=== PATIENT | male | born 1960 | race Caucasian/White ===

== ENCOUNTER 2017-03-05 14:10 | Emergency (ER) | payer SELFPAY ==
[~2017-03-05] VITALS: Ht 177.8 cm; Wt 105.0 kg
[2017-03-05 14:13] VITALS: BP 147/94; PULSE 80; RESP 20; TEMP 98.7; O2SAT 96
--- NOTE | 2017-03-05 14:17 | PD ---
Physical Exam Date Seen by Provider: Mar 05, 2017 Time Seen by Provider: 14:16 Narrative 56 yo male here for hematuria. Also feels weak. Going on since friday. Was doing a lot of working outside and feels he might have over done it. Blood only on friday. No chest pain or SOB. Vitals are stable. Awaiting bed placement. Data Data Last Documented VS Vital Signs Date Time Temp Pulse Resp B/P (MAP) Pulse Ox O2 Delivery O2 Flow Rate FiO2 03/05/17 14:13 98.7 80 20 147/94 (111) 96 Room Air [facility] Medical Record Reviewed: Yes Supervised Visit with JHONATAN: No Agustin Scott Mar 05, 2017 14:17
[2017-03-05 15:16] LABS: AUTOMATED NEUTROPHIL # 3.7 TH/MM3 (1.8-7.7); BASOPHIL # 0.1 TH/MM3 (0-0.2); BASOPHIL % 0.9 % (0.0-2.0); EOSINOPHIL # 0.3 TH/MM3 (0-0.4); EOSINOPHIL % 4.5 % (0.0-4.0); HEMATOCRIT 37.1 % (39.0-51.0); HEMO FLAGS DIFF FINAL; LYMPHOCYTE # 2.5 TH/MM3 (1.0-4.8); MEAN CELL VOLUME 78.8 FL (80.0-100.0); MEAN CORPUSCULAR HEMOGLOBIN 25.2 PG (27.0-34.0); MONO % 12.3 % (0.0-8.0); NEUT % 49.3 % (16.0-70.0); PLATELET COUNT 302 TH/MM3 (150-450); RED BLOOD COUNT 4.71 MIL/MM3 (4.50-5.90); RED CELL DISTRIBUTION WIDTH 17.5 % (11.6-17.2); WHITE BLOOD COUNT 7.5 TH/MM3 (4.0-11.0)
[2017-03-05 15:34] LABS: BICARBONATE 28.8 MEQ/L (21.0-32.0); MAGNESIUM 2.2 MG/DL (1.5-2.5); POTASSIUM 3.3 MEQ/L (3.5-5.1)
[2017-03-05 15:38] LABS: BACTERIA, URINE RARE /hpf; BLOOD, URINE LARGE (NEG); COMMENT (UR) CULT NOT INDICATED; CULTURE IF INDICATED CULT NOT INDICATED; GLUCOSE,URINE NEG (NEG); KETONE, URINE NEG (NEG); NITRITE,URINE NEG (NEG); PH, URINE 5.5 (5.0-8.5); SQUAMOUS EPITHELIAL CELL URINE 1 /hpf (0-5); URINE COLOR YELLOW (YELLW/STRAW)
--- NOTE | 2017-03-05 16:17 | PD ---
HPI Chief Complaint: Complaint Time Seen by Provider: 16:16 Travel History International Travel<30 days: No Contact w/Intl Traveler<30days: No Traveled to known affect area: No History of Present Illness HPI 56 YO M presents to the ED for evaluation of intermittent hematuria x 4 days. The patient states that he helped his daughter ready her home for sale over the weekend and was outside in the heat, physically exerting himself. He states that he noticed small amount of blood in his urine 3 days ago, increased his hydration and noted that it resolves. He states that after helping his daughter he noticed that the hematuria was back. He does endorse mild left- sided back pain, which she attributes to his physical exertion. He denies fever , chills, nausea, vomiting, abdominal pain, dysuria. No treatment attempt at home. PFSH Past Medical History Cardiovascular Problems: Yes (HTN) Social History Tobacco Use: No Allergies-Medications (Allergen,Severity, Reaction): Coded Allergies: Penicillins (Verified Allergy, Severe, 03/05/17) Reported Meds & Prescriptions Reported Meds & Active Scripts Active Reported Lisinopril 10 Mg Tab 10 Mg PO DAILY Norvasc (Amlodipine Besylate) 2.5 Mg Tab 2.5 Mg PO DAILY Review of Systems Except as stated in HPI: all other systems reviewed are Neg Physical Exam Narrative GENERAL: Well-nourished, well-developed pleasant white male in no acute distress. SKIN: Focused skin assessment warm/dry. HEAD: Normocephalic. EYES: No scleral icterus. No injection or drainage. NECK: Supple, trachea midline. No JVD or lymphadenopathy. CARDIOVASCULAR: Regular rate and rhythm without murmurs, gallops, or rubs. RESPIRATORY: Breath sounds clear and equal bilaterally. No accessory muscle use. GASTROINTESTINAL: Abdomen soft, non-tender, nondistended. Active bowel sounds. No flank tenderness. No palpable masses. No suprapubic tenderness. MUSCULOSKELETAL: No cyanosis, or edema. BACK: Nontender without obvious deformity. No CVA tenderness. Data Data Last Documented VS Vital Signs Date Time Temp Pulse Resp B/P (MAP) Pulse Ox O2 Delivery O2 Flow Rate FiO2 03/05/17 17:05 03/05/17 14:13 98.7 80 20 96 Room Air Orders Orders Complete Blood Count With Diff (03/05/17 14:17) Basic Metabolic Panel (Bmp) (03/05/17 14:17) Creatine Kinase (Cpk) (03/05/17 14:17) Urinalysis - C+S If Indicated (03/05/17 14:17) Magnesium (Mg) (03/05/17 14:17) Potassium Chloride (Kcl) (03/05/17 16:45) Mandatory Outpatient Referral (03/05/17 16:35) Labs Laboratory Tests Test 03/05/17 14:25 White Blood Count 7.5 TH/MM3 Red Blood Count 4.71 MIL/MM3 Hemoglobin 11.9 GM/DL Hematocrit 37.1 % Mean Corpuscular Volume 78.8 FL Mean Corpuscular Hemoglobin 25.2 PG Mean Corpuscular Hemoglobin Concent 32.0 % Red Cell Distribution Width 17.5 % Platelet Count 302 TH/MM3 Mean Platelet Volume 7.6 FL Neutrophils (%) (Auto) 49.3 % Lymphocytes (%) (Auto) 33.0 % Monocytes (%) (Auto) 12.3 % Eosinophils (%) (Auto) 4.5 % Basophils (%) (Auto) 0.9 % Neutrophils # (Auto) 3.7 TH/MM3 Lymphocytes # (Auto) 2.5 TH/MM3 Monocytes # (Auto) 0.9 TH/MM3 Eosinophils # (Auto) 0.3 TH/MM3 Basophils # (Auto) 0.1 TH/MM3 CBC Comment DIFF FINAL Differential Comment Urine Color YELLOW Urine Turbidity CLEAR Urine pH 5.5 Urine Specific [place] 1.020 Urine Protein 30 mg/dL Urine Glucose (UA) NEG mg/dL Urine Ketones NEG mg/dL Urine Occult Blood LARGE Urine Nitrite NEG Urine Bilirubin NEG Urine Urobilinogen LESS THAN 2.0 MG/DL Urine Leukocyte Esterase NEG Urine RBC /hpf Urine WBC LESS THAN 1 /hpf Urine Squamous Epithelial Cells 1 /hpf Urine Bacteria RARE /hpf Urine Yeast (Budding) MOD Microscopic Urinalysis Comment CULT NOT INDICATED Blood Urea Nitrogen 14 MG/DL Creatinine 1.16 MG/DL Random Glucose 97 MG/DL Calcium Level 8.8 MG/DL Magnesium Level 2.2 MG/DL Sodium Level 141 MEQ/L Potassium Level 3.3 MEQ/L Chloride Level 104 MEQ/L Carbon Dioxide Level 28.8 MEQ/L Anion Gap 8 MEQ/L Estimat Glomerular Filtration Rate 65 ML/MIN Total Creatine Kinase 101 U/L MDM Medical Decision Making Medical Screen Exam Complete: Yes Emergency Medical Condition: Yes Differential Diagnosis hematuria versus bladder tumor versus nephrolithiasis versus other Narrative Course 56 YO M presents to the ED for evaluation of intermittent hematuria x 4 days. He states that he noticed small amount of blood in his urine 3 days ago, increased his hydration and noted that it resolved. He states that after helping his daughter move this weekend he noticed that the hematuria was back. He does endorse mild left-sided back pain, which he attributes to his physical exertion. He denies fever, chills, nausea, vomiting, abdominal pain, dysuria. No treatment attempt at home. Vitals reviewed. Physical exam reveals a well- appearing white male in no acute distress. Abdominal exam is completely benign. No suprapubic tenderness. No flank tenderness. No CVA tenderness. No leukocytosis noted. Hemoglobin 11.9. Potassium noted at 3.3, replenished orally in the ED. There is occult blood and few RBCs and the urinalysis blood no indication for culture. Its possible that the patient passed a small stone. He does not have a history of kidney stones. He does not have any abdominal pain on presentation. I feel that he is safe for outpatient follow-up with the urologist to further evaluate the source of this hematuria. Mandatory outpatient consult placed with Dr. Dewitt. The patient is agreeable to this plan. He is stable and discharged home. Diagnosis Primary Impression: Hematuria Qualified Codes: R31.9 - Hematuria, unspecified Additional Impression: Hypokalemia Referrals: Tanner Dewitt MD Patient Instructions: General Instructions, Hematuria (ED) Additional Instructions: Rest, hydrate. Return to normal, gentle activity as tolerated. Orally rehydrate as discussed. A mandatory outpatient consult has been placed on your behalf. You can expect a phone call from either the hospital or the urology office in the upcoming days for an appointment at the office. Return to the ED for worsening symptoms or any urgent or emergent medical condition. Disposition: 01 DISCHARGE HOME Condition: Stable Anisa Vega Mar 05, 2017 16:17
[2017-03-05] MEDS ORDERED: NORV2.5T PO (16:31)
[2017-03-05] MEDS ORDERED: LISI10TA3 PO (16:31)
[2017-03-05] MEDS ORDERED: POTASSIUM CHLORIDE 20 MEQ CONTROLLED RELEASE TAB PO ONE (16:45)
== END 2017-03-05 17:06 | disposition home or self-care (01) ==
LOC: NEPA 14:10
DX: R31.9 Hematuria, unspecified (principal); E87.6 Hypokalemia
CPT/HCPCS: 80048; 81001; 82550; 83735; 85025; 99283

== ENCOUNTER 2017-09-01 19:17 | Emergency (ER) | payer SELFPAY ==
[~2017-09-01 19:17] MED LIST: LISI10TA3 PO; NORV2.5T PO
[2017-09-01 19:19] VITALS: BP 148/102; PULSE 94; RESP 16; TEMP 98.2; O2SAT 96
--- NOTE | 2017-09-01 19:32 | PD ---
HPI Chief Complaint: Injury Time Seen by Provider: 19:28 Travel History International Travel<30 days: No Contact w/Intl Traveler<30days: No Traveled to known affect area: No History of Present Illness HPI 56-year-old male presents for evaluation of right arm pain. 6 days ago he tripped and fell, striking his right arm against a wall. He now has pain and bruising to the right arm which is aching, constant, worse with movement. Symptoms have been persistent which prompted evaluation. He denies any other injuries and he has no other complaints at this time. [facility] Past Medical History Cardiovascular Problems: Yes (HTN) Hypertension: Yes Past Surgical History Abdominal Surgery: Yes (gastric bypass) Social History Alcohol Use: No Tobacco Use: No Allergies-Medications (Allergen,Severity, Reaction): Coded Allergies: Penicillins (Verified Allergy, Severe, 03/05/17) Reported Meds & Prescriptions Reported Meds & Active Scripts Active Diclofenac Sodium DR (Diclofenac Sodium) 75 Mg Tabdr 75 Mg PO BID 10 Days Reported Lisinopril 10 Mg Tab 10 Mg PO DAILY Norvasc (Amlodipine Besylate) 2.5 Mg Tab 2.5 Mg PO DAILY Review of Systems Musculoskeletal: Positive: Pain Skin: Positive Other (positive for bruising) Physical Exam Narrative GENERAL: Well-nourished male in no acute distress SKIN: Warm and dry. Ecchymosis noted to the right arm and elbow region. No open wounds. HEAD: Atraumatic. Normocephalic. EYES: Pupils equal and round. No scleral icterus. No injection or drainage. ENT: No nasal bleeding or discharge. Mucous membranes pink and moist. NECK: Trachea midline. No JVD. CARDIOVASCULAR: Regular rate and rhythm. No murmur appreciated. RESPIRATORY: No accessory muscle use. Clear to auscultation. Breath sounds equal bilaterally. MUSCULOSKELETAL: Skin as noted above. There is no joint effusion. The patient maintains full range of motion of the right upper extremity but there is pain with range of motion activities of the right elbow. 2+ radial pulse. The compartments of the right arm are soft. Capillary refill less than 2 seconds all digits right hand. NEUROLOGICAL: Awake and alert. No obvious cranial nerve deficits. Motor grossly within normal limits. Normal speech. Data Data Last Documented VS Vital Signs Date Time Temp Pulse Resp B/P (MAP) Pulse Ox O2 Delivery O2 Flow Rate FiO2 09/01/17 20:47 09/01/17 19:19 98.2 94 16 96 Orders Orders Humerus (Min 2vws) (09/01/17 ) Elbow, Complete (4 Vws) (09/01/17 ) Ice/Cold Pack (09/01/17 19:28) Support Splint (09/01/17 20:35) Ed Discharge Order (09/01/17 20:35) Sling Cradle Arm (09/01/17 ) MDM Medical Decision Making Medical Screen Exam Complete: Yes Emergency Medical Condition: Yes Medical Record Reviewed: Yes Differential Diagnosis Contusion, hematoma, fracture, sprain, strain Narrative Course X-ray imaging of the right humerus and elbow be obtained. Ice pack provided. X-ray imaging reveals no acute abnormalities. The patient is provided a sling for short-term use for comfort. He is stable for discharge. Diagnosis Primary Impression: Contusion of right arm Additional Impression: Muscle strain of right upper extremity Additional Instructions: Medication as needed. Take with meals. Ice pack multiple times a day 20 minutes at a time. Rest. Avoid strenuous activity. Follow-up with primary care physician in one week for recheck. Return for any emergent medical conditions. Med/Other Pt SpecificInfo: Prescription(s) given Scripts Diclofenac Sodium (Diclofenac Sodium DR) 75 Mg Tabdr 75 MG PO BID for 10 Days, #20 TAB 0 Refills Prov: Dagoberto Rodrigues MD 09/01/17 Disposition: 01 DISCHARGE HOME Condition: Stable Bill Noble Sep 01, 2017 19:31
[2017-09-01] MEDS ORDERED: DICL75TA PO (20:36)
--- NOTE | 2017-09-01 21:29 | RADRPT ---
EXAM DATE/TIME: 09/01/2017 19:35 [facility] COMPARISON: No previous studies available for comparison. INDICATIONS : Fall a week ago. Pain and brusing near the elbow. MEDICAL HISTORY : None. SURGICAL HISTORY : None. ENCOUNTER: Initial ACUITY: 1 week PAIN SCORE: 10/10 LOCATION: Right Arm. FINDINGS: Two view examination of the right humerus demonstrates no evidence of fracture or dislocation. Bony mineralization is normal. The soft tissue structures are intact. CONCLUSION: Unremarkable examination of the right humerus. Kolby Desai MD on September 01, 2017 at 21:27 Board Certified Radiologist. This report was verified electronically.
--- NOTE | 2017-09-01 21:31 | RADRPT ---
EXAM DATE/TIME: 09/01/2017 19:41 [facility] COMPARISON: No previous studies available for comparison. INDICATIONS : Fall a week ago. Pain and bruising near the elbow. MEDICAL HISTORY : None. SURGICAL HISTORY : None. ENCOUNTER: Initial ACUITY: 1 week PAIN SCORE: 10/10 LOCATION: Right elbow. FINDINGS: Multiple view examination of the right elbow demonstrates no soft tissue swelling, joint effusion, or fracture. The osseous structures are in normal alignment. Bony mineralization is normal. CONCLUSION: Unremarkable examination of the right elbow. Kolby Desai MD on September 01, 2017 at 21:29 Board Certified Radiologist. This report was verified electronically.
== END 2017-09-01 20:47 | disposition home or self-care (01) ==
LOC: NEPK 19:17
DX: S40.021A Contusion of right upper arm, initial encounter (principal); S46.911A Strain of unspecified muscle, fascia and tendon at shoulder and upper arm level, right arm, initial encounter; I10 Essential (primary) hypertension; W01.0XXA Fall on same level from slipping, tripping and stumbling without subsequent striking against object, initial encounter; Z98.84 Bariatric surgery status; Z88.0 Allergy status to penicillin; Z79.899 Other long term (current) drug therapy
CPT/HCPCS: 73060; 73080; 99283